=== PATIENT | female | born 1960 | race Caucasian/White ===

== ENCOUNTER 2019-03-01 19:09 | Inpatient (IN) | payer OTHER ==
[~2019-03-01] VITALS: Ht 157.5 cm; Wt 93.0 kg
--- NOTE | 2019-03-01 20:36 | NUR ---
BIBSELF WITH FAMILY AT BEDSIDE. TO ER BED 11. AAOX4. NO RESP DISTRESS NOTED. AMBULATORY. C/O BILAT LOWER EXTREMETIES REDNESS AND ABDOMINAL PAIN. PT REPORTS, THAT HER LEGS SWELL UP UPON ARRIVAL TO [facility] FROM [facility]. NOTED DIFFUSED REDNESS ON [place] AREA. NO SWELLING PRESENT, TENDER TO TOUCH, BILAT PEDAL PULSE PRESENT-EQUAL AND STRONG, ROM INTACT. PT NOTED WITH LARGE DISCOLORATION, DARK PRURPLISH, PER PT STARTED 6 DAYS AGO ALSO AND STARTED SMALL. PAIN PRESENT 3/10 DULL ACHING - LIKE HAVING PERIOD STATED BY PT. SHE ALSO REPORTS BLOOD IN HER URINE. PT FEELS NAUSEOUS. NO VOMITING OR DIARRHEA. DENIES CP OR SOB.
[2019-03-01 21:09] LABS: BASOPHILS # (AUTO) 0.1 /CMM (0.0-0.2); BASOPHILS % (AUTO) 1.3 % (0.0-2.0); EOSINOPHILS % (AUTO) 1.5 % (0.0-6.0); HEMATOCRIT 41 % (33-45); HEMOGLOBIN 13.7 g/dL (11.5-14.8); LYMPHOCYTES # (AUTO) 2.8 /CMM (0.8-4.8); LYMPHOCYTES % (AUTO) 39.5 % (20.0-44.0); MEAN CORPUSCULAR HGB CONC 33 g/dl (31.0-36.0); MEAN CORPUSCULAR VOLUME 84 fL (82-100); MONOCYTES # (AUTO) 0.4 /CMM (0.1-1.30); MONOCYTES % (AUTO) 5.5 % (2.0-12.0); NEUTROPHILS # (AUTO) 3.7 /CMM (1.8-8.9); NEUTROPHILS % (AUTO) 52.2 % (43.0-81.0); RED BLOOD CELL COUNT(AUTO) 4.93 MIL/uL (4.0-5.2); WHITE BLOOD COUNT (AUTO) 7.1 K/uL (4.3-11.0)
[2019-03-01 21:13] LABS: APPEARANCE,URINE Clear (CLEAR); BILIRUBIN,URINE Negative (NEGATIVE); BLOOD, URINE Trace-intact Ery/uL (NEGATIVE); COLOR,URINE Yellow (YELLOW); KETONES,URINE 15 (NEGATIVE); LEUKOCYTE ESTERASE ,URINE Trace (NEGATIVE); NITRITE, URINE Negative (NEGATIVE); PROTEIN,URINE Negative (NEGATIVE); UGLUCOSE 500 MG/DL mg/dL (NEGATIVE); UROBILINOGEN,URINE 0.2 EU/dL (0.2)
[2019-03-01 21:18] LABS: CALCIUM, SERUM 9.6 mg/dL (8.5-10.1); CREATININE 0.7 mg/dL (0.6-1.3); POTASSIUM 4.5 mmol/L (3.5-5.1)
--- NOTE | 2019-03-01 21:20 | NUR ---
CALLED NURSING SUP. FOR MS BED
[2019-03-01 21:23] LABS: ALBUMIN 3.8 g/dL (3.4-5.0); BILIRUBIN,DIRECT 0.1 mg/dL (0.0-0.2); BILIRUBIN,TOTAL 0.7 mg/dL (0.2-1.0); TOTAL PROTEIN, SERUM 7.7 g/dL (6.4-8.2)
[2019-03-01 21:32] LABS: BACTERIA,URINE Few /HPF (None Seen); MUCUS,URINE Few /LPF (None Seen); RBC,URINE 2-4/HPF /HPF (0-2); SQUAMOUS EPITHELIAL CELL,UR Few /HPF (None Seen); URINE AMORPHOUS URATE Few /HPF (None Seen)
[2019-03-01] MEDS ORDERED: ONDANSETRON HCL/PF 4 MG/2 ML VIAL ONE (21:33)
[2019-03-01 21:59] LABS: PLATELET COUNT (AUTO) 13 /CMM (150-450)
[2019-03-01 22:00] LABS: BAND % (MANUAL) 1 % (0.0-5.0); EOSINOPHILS % (MANUAL) 2 % (0-4); LYMPHOCYTES % (MANUAL) 41 % (16-48); MONOCYTES % (MANUAL) 5 % (0-11.0); NEUTROPHILS % (MANUAL) 51 (42-76)
[2019-03-01] MEDS ORDERED: ONDANSETRON HCL/PF - ER 4 MG/2 ML VIAL IV ONE (22:00)
--- NOTE | 2019-03-01 22:12 | NUR ---
MS 315-2
--- NOTE | 2019-03-01 22:15 | NUR ---
CONSENT OBTAINED FROM PT FOR BLOOD TRANSFUSSION
--- NOTE | 2019-03-01 22:16 | NUR ---
DR.RUTHERFORD ATIYA FOOD QUALITY TECHNICIAN
--- NOTE | 2019-03-01 22:28 | NUR ---
REPORT GIVEN TO NEIL HARRIS FOR MICHELLE.
[2019-03-01] MEDS ORDERED: methylPREDNISolone SOD SUCC 125 MG/2ML VIAL ONE (22:29)
[2019-03-01] MEDS ORDERED: methylPREDNISolone SOD SUCC 125 MG/2ML VIAL IV ONE (22:30)
--- NOTE | 2019-03-01 22:44 | NUR ---
2ND IV LINE OBTAINED ON L AC 18G.
[2019-03-01] MEDS ORDERED: *INSULIN REGULAR(HUMULIN R)HUM 100 UNIT/ML VIAL SQ PRN (23:00)
[2019-03-01] MEDS ORDERED: ONDANSETRON HCL/PF 4 MG/2 ML VIAL IVP PRN (23:00)
[2019-03-01] MEDS ORDERED: HYDROCODONE/APAP 5/325MG 1 EACH TABLET PO PRN (23:00)
[2019-03-01] MEDS ORDERED: MAG HYDROX/AL HYDROX/SIMETH 30 ML UDC PO PRN (23:00)
[2019-03-01] MEDS ORDERED: Z GUARD REMEDY 2 OZ OINT TP PRN (23:00)
[2019-03-01] MEDS ORDERED: DEXTROSE 50%-WATER 50 ML DISP.SYRIN IV PRN (23:00)
[2019-03-01] MEDS ORDERED: MAGNESIUM HYDROXIDE 30 ML UDC PO PRN (23:00)
--- NOTE | 2019-03-01 23:05 | NUR ---
RN Notes Admitted patient from ER via [facility], awake, alert and oriented x4. Able to transfer from [facility] to bed with steady gait. Vital signs stable. Verbalized pain from the lower back at tolerable level at this time,3-09/23. Denies sob, nausea and vomiting.Skin assessment done, noted with bruise on the lower abdomen and rashes on bilateral lower leg and feet, not itchy, not painful. IV access on right hand and left AC patent and intact. Plan of care and fall precaution discussed with the patient and verbalized understanding. Kept comfortable and attended with call light within reach. Will continue to monitor patient.
[2019-03-01 23:15] VITALS: BP 154/74
--- NOTE | 2019-03-01 23:20 | NUR ---
PT TRANSPORTED TO UNIT ON GURNEY WITH EMT AND RN AT BEDSIDE. PT IS STABLE FOR TRANSPORT TO UNIT. NAD NOTED DURING TRASNPORT. PT AMBULATED FROM GURNEY TO BED WITHOUT ASSIST ON STEADY GAIT
[2019-03-01 23:30] VITALS: BP 154/74
[2019-03-01] MEDS ORDERED: LEVOFLOXACIN 500 MG /D5W 100ML 100 ML IV ONE (23:40)
[2019-03-01] MEDS: LEVOFLOXACIN 500 MG /D5W 100ML 500 MG in PREMIX 1 EA IV SCH (23:51)
[2019-03-02] VITALS (10 sets, daily range): BP systolic 119–166; BP diastolic 62–77
--- NOTE | 2019-03-02 01:19 | NUR ---
RN Notes Blood transfusion of 1 unit of platelet started at 0050. Patient tolerated procedure well, vital signs stable, no reaction noted from the transfusion noted. Will continue to monitor.
--- NOTE | 2019-03-02 02:22 | NUR ---
RN Notes Patient complains of pain on her lower back, 6/10 from the injury she got when she was at the [employer]. Parks 5/325 mg tab given PO. Will continue to monitor.
--- NOTE | 2019-03-02 05:50 | NUR ---
RN Notes Patient slept well even without CPAP, breathing regular and unlabored. No reaction from blood transfusion of platelet noted. Patient denies sob, nausea and vomiting or any discomfort. Vital signs stable. Low back pain managed with current regimen. Safety measures and fall precaution observed. Plan of care discussed with the patient and verbalized understanding. Will continue to monitor and will endorse accordingly.
[2019-03-02] MEDS: methylPREDNISolone SOD SUCC 125 MG/2ML VIAL IV SCH ×3 (06:37→17:16)
[2019-03-02] MEDS: BLOOD SUGAR DIAGNOSTIC 1 EACH STRIP VI SCH ×4 (06:38→21:29)
[2019-03-02] MEDS: ACETAMINOPHEN 325 MG TABLET PO PRN ×2 (06:39→20:33)
[2019-03-02] MEDS: INSULIN REGULAR, HUMAN 100 UNIT/ML 3 ML VIAL SQ PRN ×3 (06:41→17:17)
[2019-03-02 06:47] LABS: BASOPHILS % (AUTO) 0.4 % (0.0-2.0); EOSINOPHILS % (AUTO) 0.4 % (0.0-6.0); HEMATOCRIT 42 % (33-45); HEMOGLOBIN 13.5 g/dL (11.5-14.8); LYMPHOCYTES # (AUTO) 1.2 /CMM (0.8-4.8); LYMPHOCYTES % (AUTO) 18.8 % (20.0-44.0); MEAN CORPUSCULAR HGB CONC 32 g/dl (31.0-36.0); MEAN CORPUSCULAR VOLUME 85 fL (82-100); MONOCYTES # (AUTO) 0.1 /CMM (0.1-1.30); MONOCYTES % (AUTO) 1.5 % (2.0-12.0); NEUTROPHILS # (AUTO) 5.2 /CMM (1.8-8.9); NEUTROPHILS % (AUTO) 78.9 % (43.0-81.0); WHITE BLOOD COUNT (AUTO) 6.6 K/uL (4.3-11.0)
[2019-03-02 07:04] LABS: PLATELET COUNT (AUTO) 7 /CMM (150-450)
[2019-03-02 07:08] LABS: CALCIUM, SERUM 9.1 mg/dL (8.5-10.1); CREATININE 0.9 mg/dL (0.6-1.3); PHOSPHORUS 3.9 mg/dL (2.5-4.9); POTASSIUM 4.7 mmol/L (3.5-5.1)
--- NOTE | 2019-03-02 07:14 | NUR ---
RN Notes DAGMAR Foster informed of the blood sugar level of 431 mg/dl and Platelet count of 7.0. New orders received , transfuse 2 units of platelet concentrate. Patient made aware. Blood bank notified, spoke to [place]. Endorsed to to Jessica TREJO. Will continue to monitor.
--- NOTE | 2019-03-02 07:15 | NUR ---
MS/RN - Assessment Patient is awake, A/O x 4, denies pain, not in any form of distress, stable on room air. Patient with critical blood glucose and platelets, 15 units of regular insulin given by night RN, with order to give 2 units platelet concentrate, no active bleeding seen. Skin noted with bruise on the abdomen and rash on BLE. Saline lock on the right hand is patent, intact, flushing well. All needs attended. Fall precautions maintained. Plan of care discussed with patient and in agreement. Will continue with current medical management.
[2019-03-02] MEDS ORDERED: ROSU20TA2 PO (08:20)
[2019-03-02] MEDS ORDERED: LINA5TAB PO (08:20)
[2019-03-02] MEDS ORDERED: METF500T7 PO (08:20)
[2019-03-02] MEDS ORDERED: ESCI20TA PO (08:20)
[2019-03-02 08:34] LABS: LYMPHOCYTES % (MANUAL) 26 % (16-48); MONOCYTES % (MANUAL) 3 % (0-11.0); NEUTROPHILS % (MANUAL) 71 (42-76)
--- NOTE | 2019-03-02 14:46 | NUR ---
MS/RN - Notes Patient was given 2 units of platelets with no adverse reaction seen, tolerated it well, VSS.
--- NOTE | 2019-03-02 18:00 | NUR ---
MS/RN - End of shift summary Patient in no acute distress, denies abdominal pain, no c/o n/v, afebrile, no further episodes of critical blood sugar result, still on Solu-medrol every 6 hours. All needs attended and met. Will continue with current plan of care.
--- NOTE | 2019-03-02 19:10 | NUR ---
RN Notes Received patient awake, alert, just came back from CT. Denies pain or any discomfort, nausea and vomiting. On room air and tolerated well with good saturation. Still noted with bruise on lower abdomen and rashes on bilateral lower extremity. No active bleeding noted. IV access on right hand and left AC patent and intact. Plan of care discussed with the patient and verbalized understanding. Safety measures and fall precaution in place. Will continue to monitor patient.
[2019-03-02] MEDS: FOLIC ACID 1 MG TABLET PO SCH (20:32)
--- NOTE | 2019-03-02 20:33 | NUR ---
RN Notes Patient complains of headache, tylenol 650 mg tabgiven PO and tolerated well. Will continue to monitor.
[2019-03-03] MEDS: LEVOFLOXACIN 500 MG /D5W 100ML 500 MG in PREMIX 1 EA IV SCH ×2
--- NOTE | 2019-03-03 05:46 | NUR ---
RN Notes Patient sleep well overnight with CPAP, vital signs stable, afebrile. Verbalized acid reflux, will communicate with MD. Denies nausea and vomiting. No signs and symptoms of bleeding noted. Safety measures maintained. All needs met. No significant change in condition noted. Will continue to monitor.
[2019-03-03] MEDS: BLOOD SUGAR DIAGNOSTIC 1 EACH STRIP VI SCH ×4 (06:31→22:28)
[2019-03-03] MEDS: INSULIN REGULAR, HUMAN 100 UNIT/ML 3 ML VIAL SQ PRN ×3 (06:33→17:59)
--- NOTE | 2019-03-03 07:16 | NUR ---
MS RN NOTES PATIENT IN BED ALERT ORIENTED X 4 . NO ACUTE DISTRESS NOTED. BREATHING UNLABORED. IV ACCESS PATENT AND INTACT. SAFETY MEASURES IN PLACE. CALL LIGHT WITHIN REACH. WILL CONTINUE TO MONITOR ACCORDINGLY.
[2019-03-03 07:24] LABS: C-REACTIVE PROTEIN 1.1 mg/dL (0.0-0.9); THYROID STIMULATING HORMONE 0.259 uIU/mL (0.358-3.74)
[2019-03-03 08:04] LABS: BASOPHILS % (AUTO) 0.1 % (0.0-2.0); EOSINOPHILS % (AUTO) 0.1 % (0.0-6.0); HEMATOCRIT 39 % (33-45); HEMOGLOBIN 12.7 g/dL (11.5-14.8); LYMPHOCYTES # (AUTO) 1.8 /CMM (0.8-4.8); LYMPHOCYTES % (AUTO) 18.6 % (20.0-44.0); MEAN CORPUSCULAR HGB CONC 33 g/dl (31.0-36.0); MEAN CORPUSCULAR VOLUME 84 fL (82-100); MONOCYTES # (AUTO) 0.6 /CMM (0.1-1.30); MONOCYTES % (AUTO) 5.8 % (2.0-12.0); NEUTROPHILS # (AUTO) 7.2 /CMM (1.8-8.9); NEUTROPHILS % (AUTO) 75.4 % (43.0-81.0); RED BLOOD CELL COUNT(AUTO) 4.56 MIL/uL (4.0-5.2); WHITE BLOOD COUNT (AUTO) 9.6 K/uL (4.3-11.0)
[2019-03-03 08:09] VITALS: BP 125/67
[2019-03-03 08:36] LABS: PLATELET COUNT (AUTO) 17 /CMM (150-450)
--- NOTE | 2019-03-03 08:42 | NUR ---
MS RN NOTES RECEIVED CRITICAL PLATELET RESULT 17, NOTIFIED DR DEL HESTER, NO NEW ORDERS MADE AT THIS TIME.
[2019-03-03] MEDS ORDERED: methylPREDNISolone SOD SUCC 125 MG/2ML VIAL IV SCH (09:00)
[2019-03-03 09:27] LABS: LYMPHOCYTES % (MANUAL) 20 % (16-48); MONOCYTES % (MANUAL) 4 % (0-11.0); NEUTROPHILS % (MANUAL) 76 (42-76)
[2019-03-03] MEDS: FOLIC ACID 1 MG TABLET PO SCH (09:28)
[2019-03-03 16:00] VITALS: BP 133/67
[2019-03-03] MEDS ORDERED: INSULIN REGULAR, HUMAN 100 UNIT/ML 10 ML VIAL SQ ONE ×2 (18:00→20:00)
--- NOTE | 2019-03-03 18:01 | NUR ---
MS RN NOTES PATIENT NOTED WITH BLOOD SUGAR 454 INSULIN GIVEN PER SLIDING SCALE AND NOTIFIED DEL DICKENS WITH NEW ORDER TO GIVE ADDITIONAL REGULAR INSULIN 5 UNITS X 1 DOSE. NOTED AND CARRY OUT. PATIENT IN STABLE CONDITION, WILL CONTINUE TO MONITOR PATIENT.
--- NOTE | 2019-03-03 19:03 | NUR ---
MS RN NOTES PATIENT IN BED, ALERT ORIENTED X 4. NO ACUTE DISTRESS NOTED. BREATHING UNLABORED. IV ACCESS PATENT AND INTACT. NO S/SX OF HYPOGLYCEMIA OR HYPERGLYCEMIA. NEEDS ATTENDED AND ANTICIPATED. KEPT CLEAN DRY AND COMFORTABLE. SAFETY MEASURES IN PLACE. CALL LIGHT WITHIN REACH. WILL ENDORSE TO NIGHT NURSE FOR CONTINUITY OF CARE
--- NOTE | 2019-03-03 19:05 | NUR ---
MS RN NOTES RECEIVED PT IN BED AWAKE AND ABLE TO MAKE NEEDS KNOWN. PT A/O X3. RESPIRATIONS EVEN AND UNLABORED WITH NO S/S OF ACUTE DISTRESS OR SOB NOTED. NO COMPLAINTS OF PAIN AT THIS TIME. SAFETY MEASURES IN PLACE WITH BED IN LOWEST LOCKED POSITION WITH SIDE RAILS UP X2. CALL LIGHT WITHIN REACH. WILL CONTINUE TO MONITOR.
[2019-03-03 20:00] VITALS: BP 134/70
--- NOTE | 2019-03-03 20:10 | NUR ---
MS RN NOTES PT NOTED WITH BS OF 497, MADE AWARE. NEW ORDER FOR REGULAR INSULIN 20 UNITS X1 NOW. MEDICATION EVEN WILL CONTINUE TO MONITOR.
--- NOTE | 2019-03-03 20:15 | NUR ---
RECEIVED PATIENT IN BED AWAKE. AO X 3, ABLE TO MAKE NEEDS KNOWN. NO ACUTE DISTRESS NOTED. DENIES ANY PAIN AT THIS TIME. IV SITE PATENT, INTACT; FLUSHED. SAFETY REMINDERS GIVEN. ON LOW BED WITH BILATERAL UPPER SIDE RAILS UP. CALL CAMERON WITHIN EASY REACH. WILL CONTINUE TO MONITOR.
--- NOTE | 2019-03-03 20:15 | NUR ---
MS RN NOTES REPORT GIVEN TO RVI RN FOR MICHELLE.
--- NOTE | 2019-03-03 21:50 | NUR ---
DR. DOMINGO REYES MADE AWARE OF BS 426; WITH NEW ORDER TO CHANGE SOLU-MEDROL TO 40 MG BID AND GIVE 15 UNITS REGULAR INSULIN X 1 NOW; NOTED AND CARRIED OUT.
[2019-03-03] MEDS ORDERED: INSULIN REGULAR, HUMAN 100 UNIT/ML 3 ML VIAL SQ ONE (22:00)
[2019-03-04] MEDS: LEVOFLOXACIN 500 MG /D5W 100ML 500 MG in PREMIX 1 EA IV SCH (00:04)
--- NOTE | 2019-03-04 01:00 | NUR ---
RELAYED TO DR. DOMINGO FARIAS BS 335; NO INSULIN TO BE GIVEN PER MD. WILL CONTINUE TO MONITOR PATIENT.
--- NOTE | 2019-03-04 06:00 | NUR ---
PATIENT ASLEEP, EASILY AROUSABLE. RESPIRATIONS EVEN. NO SIGNS OF PAIN NOTED. NO SYMPTOMS OF HYPER/HYPOGLYCEMIA. DUE MED GIVEN WITH NO ASE NOTED. NEEDS ATTENDED. SAFETY PRECAUTIONS AND COMFORT MEASURES IN PLACE. WILL GIVE REPORT TO DAY SHIFT FOR CONTINUITY OF CARE.
[2019-03-04] MEDS: BLOOD SUGAR DIAGNOSTIC 1 EACH STRIP VI SCH ×2 (06:34→12:14)
[2019-03-04] MEDS: INSULIN REGULAR, HUMAN 100 UNIT/ML 3 ML VIAL SQ PRN ×2 (06:37→12:14)
[2019-03-04 08:00] VITALS: BP 144/72
[2019-03-04 08:21] LABS: BASOPHILS % (AUTO) 0.2 % (0.0-2.0); HEMATOCRIT 39 % (33-45); HEMOGLOBIN 12.7 g/dL (11.5-14.8); LYMPHOCYTES # (AUTO) 2.4 /CMM (0.8-4.8); LYMPHOCYTES % (AUTO) 19.8 % (20.0-44.0); MEAN CORPUSCULAR HGB CONC 33 g/dl (31.0-36.0); MEAN CORPUSCULAR VOLUME 84 fL (82-100); MONOCYTES # (AUTO) 0.6 /CMM (0.1-1.30); MONOCYTES % (AUTO) 5.3 % (2.0-12.0); NEUTROPHILS # (AUTO) 8.9 /CMM (1.8-8.9); NEUTROPHILS % (AUTO) 74.7 % (43.0-81.0); RED BLOOD CELL COUNT(AUTO) 4.65 MIL/uL (4.0-5.2); WHITE BLOOD COUNT (AUTO) 11.9 K/uL (4.3-11.0)
[2019-03-04 08:27] LABS: PLATELET COUNT (AUTO) 35 /CMM (150-450)
[2019-03-04 08:50] LABS: LYMPHOCYTES % (MANUAL) 15 % (16-48); MONOCYTES % (MANUAL) 6 % (0-11.0); NEUTROPHILS % (MANUAL) 79 (42-76)
[2019-03-04] MEDS ORDERED: methylPREDNISolone SOD SUCC 40 MG/ML VIAL IV SCH (09:00)
--- NOTE | 2019-03-04 09:00 | NUR ---
MS RN NOTES PATIENT SEEN AND EVALUATED BY DR DEL HESTER, AWARE OF PLATELET 35. NO NEW ORDERS MADE AT THIS TIME.
[2019-03-04] MEDS: FOLIC ACID 1 MG TABLET PO SCH (09:15)
--- NOTE | 2019-03-04 14:52 | NUR ---
MS TREJOBANKING PIN ADJUSTER NOTES PATIENT DISCHARGE HOME WITH STABLE VITAL SIGNS, NO ACUTE DISTRESS NOTED, BREATHING UNLABORED. IV ACCESS REMOVED, NO BLEEDING, NO REDNESS, NO SWELLING NOTED. DISCHARGE INSTRUCTIONS GIVEN TO THE PATIENT, INCLUDING FOLLOW UP WITH PRIMARY DOCTOR AND NEW PRESCRIPTION, VERBALIZED UNDERSTANDING. ALL BELONGINGS ACCOUNTED FOR. ASSISTED TO THE LOBBY, PATIENT PICKED UP VIA CAR WITH GRAND DAUGHTER. Addendum: 03/04/19 at 1635 by KENTRELL ASHBY RN ADDENDUM: IMAGING CD GIVEN TO THE PATIENT UPON DISCHARGE.
[2019-03-04 20:06] LABS: *ANA ANTI-CENTROMERE B AB <0.2 AI (0.0-0.9); *ANA ANTI-DNA(DS) AB, QN <1 IU/mL (0-9); *ANA ANTI-JO-1 <0.2 AI (0.0-0.9); *ANA ANTICHROMATIN ANTIBODY <0.2 AI (0.0-0.9); *ANA RNP ANTIBODIES <0.2 AI (0.0-0.9); *ANA SJOGREN'S ANTI-SS-A <0.2 AI (0.0-0.9); *ANA SJOGREN'S ANTI-SS-B <0.2 AI (0.0-0.9); *ANAANTI-SCLERODERMA-70 AB <0.2 AI (0.0-0.9); *ANASMITH AB <0.2 AI (0.0-0.9)
== END 2019-03-04 14:30 | disposition home or self-care (01) | DRG 813 ==
LOC: ER 19:13 → MED 22:19
PROVIDERS: ADMIT Internal Medicine; ATTEND Internal Medicine
PROC: 30233R1 Transfusion of Nonautologous Platelets into Peripheral Vein, Percutaneous Approach (ICD-10-PCS; principal; 2019-03-01)
DX: D69.3 Immune thrombocytopenic purpura (principal); N39.0 Urinary tract infection, site not specified; E66.9 Obesity, unspecified; G47.33 Obstructive sleep apnea (adult) (pediatric); Z68.35 Body mass index [BMI] 35.0-35.9, adult; E11.65 Type 2 diabetes mellitus with hyperglycemia; D64.9 Anemia, unspecified; Z90.710 Acquired absence of both cervix and uterus; Z98.890 Other specified postprocedural states; Z88.0 Allergy status to penicillin; Z88.2 Allergy status to sulfonamides; E78.5 Hyperlipidemia, unspecified; Z79.84 Long term (current) use of oral hypoglycemic drugs; Z79.899 Other long term (current) drug therapy; K80.20 Calculus of gallbladder without cholecystitis without obstruction; K76.0 Fatty (change of) liver, not elsewhere classified; S30.1XXA Contusion of abdominal wall, initial encounter; X58.XXXA Exposure to other specified factors, initial encounter; Y92.9 Unspecified place or not applicable
CPT/HCPCS: 36415; 70450-TC; 76700-TC; 80048-TC; 80076-TC; 81000-TC; 82962-TC; 83735-TC; 84100-TC; 84439-TC; 84443-TC; 85025-TC; 85730-TC; 86140-TC; 86225; 86235; 86431-TC; 86706; 86803; 86850-TC; 87081-TC; 87086-TC; 87338; 87340; 87806; A4216; G0378; J1815; J1956; J2405; J2920; J2930; J7050; P9016-BL; P9034-BL